=== PATIENT | male | born 1965 | race Caucasian/White ===

== ENCOUNTER 2017-08-03 23:54 | Emergency (ER) | payer OTHER ==
[~2017-08-03] VITALS: Ht 185.4 cm; Wt 108.5 kg
[~2017-08-03 23:54] MED LIST: ANTIVERT25 MG PO; NASACORT10.8 ML BOTH NARES; PROMETHAZINE HC50 M1 PO; ZOFRAN4 MG PO
[2017-08-04 00:27] LABS: HEMATOCRIT 48.6 % (38.0-50.0); HEMOGLOBIN 16.8 G/DL (12.5-16.6); MCH 31.8 PG (29.0-34.0); MCHC 34.6 G/DL (30.0-36.0); PLATELET COUNT 172 K/uL (156-360); RBC DIS.WIDTH-CV 12.8 % (11.8-14.6); RBC DIS.WIDTH-SD 43.7 % (39-53); RED BLOOD COUNT 5.28 M/uL (4.00-5.50); WHITE BLOOD COUNT 7.7 K/uL (4.1-10.2)
[2017-08-04 00:47] LABS: TROP-I INTERPRETATION NEGATIVE; TROPONIN-I < 0.01 ng/mL (0.0-0.30)
[2017-08-04 01:20] LABS: CHLORIDE 109 MEQ/L (99-109); GFR ESTIMATE (CALCULATED) > 59 mL/min/ (58.99-99999); GLUCOSE 102 mg/dL (70-99); POTASSIUM 3.6 MEQ/L (3.7-5.4); SODIUM 145 MEQ/L (136-147); UREA NITROGEN (BUN) 19 mg/dL (9-23)
[2017-08-04 02:15] LABS: D-DIMER ELISA < 150.00 ng/mLDDU (<230)
[2017-08-04 03:15] LABS: TROP-I INTERPRETATION NEGATIVE; TROPONIN-I < 0.01 ng/mL (0.0-0.30)
[2017-08-04 03:40] VITALS: BP 148/108
== END 2017-08-04 03:40 | disposition home or self-care (01) ==
LOC: EME 23:54
PROVIDERS: Emergency Medicine
DX: M79.622 Pain in left upper arm (principal)
CPT/HCPCS: 71046; 73060; 80048; 84484; 85027; 85379; 93005; 99281; 99284